=== PATIENT | female | born 1975 ===

== ENCOUNTER 2022-12-26 12:19 | Outpatient (CLI) | payer OTHER | END 2022-12-26 12:20 | disposition home or self-care (01) | LOC: BICMAMMO 12:19 | PROVIDERS: ATTEND Family Medicine | DX: Z12.31 Encounter for screening mammogram for malignant neoplasm of breast (principal) | CPT/HCPCS: 77063; 77067 ==

== ENCOUNTER 2023-09-25 14:07 | Outpatient (CLI) | payer OTHER | END 2023-09-25 14:08 | disposition home or self-care (01) | LOC: SCSRAD 14:07 | PROVIDERS: ATTEND Family Medicine | DX: M17.0 Bilateral primary osteoarthritis of knee (principal); R06.02 Shortness of breath; U09.9 Post COVID-19 condition, unspecified | CPT/HCPCS: 71046 ==

== ENCOUNTER 2025-08-06 14:47 | Outpatient (CLI) | payer OTHER | END 2025-08-06 14:48 | disposition home or self-care (01) | LOC: BICMAMMO 14:47 | PROVIDERS: ATTEND Family Medicine | DX: Z12.31 Encounter for screening mammogram for malignant neoplasm of breast (principal); N63.15 Unspecified lump in the right breast, overlapping quadrants | CPT/HCPCS: 77063; 77067 ==